=== PATIENT | female | born 1985 | race Caucasian/White ===

== ENCOUNTER 2018-06-18 18:05 | Emergency (ER) | payer SELFPAY ==
[2018-06-18 19:17] LABS: #Basophils 0.1 thou/uL (0.0-0.2); #Eosinphils 0.1 thou/uL (0.0-0.7); #Lymphocytes 3.3 thou/uL (1.20-3.40); #Monocytes 0.8 thou/uL (0.11-0.59); #Neutrophils 6.2 thou/uL (1.40-6.50); %Basophils 0.7 % (0.0-1.0); %Lymphocytes 31.6 % (21.0-51.0); %Monocytes 7.5 % (0.0-10.0); %Neutrophils 59.1 % (42.0-75.0); Hemoglobin 13.7 g/dL (12.0-16.0); Mean Corpuscular Hemoglobin 29.7 pg (27.0-31.0); Mean Corpuscular Volume 89.9 fL (78.0-98.0); Mean Platelet Volume 7.4 fL (7.4-10.4); Platelet Count 372 thou/uL (130-400); RBC Distribution Width 11.5 % (11.5-14.5); Red Blood Cell (RBC) Count 4.61 mill/uL (4.20-5.40); White Blood Cell (WBC) Count 10.5 thou/uL (4.8-10.8)
[2018-06-18 20:31] LABS: Bilirubin Negative (Negative); Blood, Urine Negative (Negative); Clarity CLEAR (Clear); Glucose, Urine (Dipstick) Negative (Negative); Leukocyte Negative (Negative); Nitrite Negative (Negative); Protein, Urine (Dipstick) Negative (Neg-Trace); pH, Urine 6.5 (5.0-9.0)
--- NOTE | 2018-06-18 21:26 | ULT ---
ULTRASOUND PELVIC ULTRASOUND TRANSVAGINAL DOPPLER DUPLEX: DATE: 06/18/2018 HISTORY: 32-year-old female with positive test. Confirm intrauterine . TECHNIQUE: Transabdominal transducer and endovaginal transducer used to visualize intrapelvic contents with martinez scale, color-flow, and spectral analysis. FINDINGS: Endometrial stripe is thickened to approximately 19 mm (1.9 cm), and has heterogeneous intermediate e chogenicity. Within it, tiny, irregularly-shaped pockets of anechoic fluid are visualized, but there is no evidence of a normal gestational sac. No pole is visualized. No free fluid in the cul-de-sac. Right ovary 3.5 x 2.5 x 2.5 cm. Left ovary 2.5 x 2.5 x 2 cm. No ovarian cyst. Blood flow demonstrated in both ovaries by Doppler. No ectopic gestation visualized, but negative ultrasound does not rule it out. IMPRESSION: 1. No evidence of a normal intrauterine gestation. 2. Abnormal appearance of endometrium. Possibilities include blood clots, retained products of concep tion and gestational trophoblastic disease. 3. Recommend serial follow-up syndrome beta-hCG levels, and if clinically indicated, follow-up pelvic and transvaginal ultrasound.
== END 2018-06-18 22:15 | disposition home or self-care (01) ==
LOC: ERS 18:05
DX: O20.0 Threatened abortion (principal); O99.341 Other mental disorders complicating pregnancy, first trimester; F41.9 Anxiety disorder, unspecified; F31.9 Bipolar disorder, unspecified; O99.331 Smoking (tobacco) complicating pregnancy, first trimester; F17.210 Nicotine dependence, cigarettes, uncomplicated; Z3A.01 Less than 8 weeks gestation of pregnancy
CPT/HCPCS: 36415; 76856; 81003; 84702; 85025; 86900; 86901; 90384; 96372

== ENCOUNTER 2019-06-11 12:47 | Emergency (ER) | payer SELFPAY | END 2019-06-11 13:30 | disposition home or self-care (01) | LOC: ERS 12:47 | DX: O9A.211 Injury, poisoning and certain other consequences of external causes complicating pregnancy, first trimester (principal); S16.1XXA Strain of muscle, fascia and tendon at neck level, initial encounter; S40.212A Abrasion of left shoulder, initial encounter; O99.341 Other mental disorders complicating pregnancy, first trimester; F31.9 Bipolar disorder, unspecified; F41.9 Anxiety disorder, unspecified; O99.331 Smoking (tobacco) complicating pregnancy, first trimester; F17.210 Nicotine dependence, cigarettes, uncomplicated; O99.411 Diseases of the circulatory system complicating pregnancy, first trimester; I50.9 Heart failure, unspecified; Z3A.11 11 weeks gestation of pregnancy; Z79.899 Other long term (current) drug therapy; V43.52XA Car driver injured in collision with other type car in traffic accident, initial encounter | CPT/HCPCS: 99283; L0120 ==

== ENCOUNTER 2019-07-26 11:08 | Emergency (ER) | payer OTHER | END 2019-07-26 11:40 | disposition home or self-care (01) | LOC: ERS 11:08 | DX: L55.0 Sunburn of first degree (principal); F31.9 Bipolar disorder, unspecified; F41.9 Anxiety disorder, unspecified; I50.9 Heart failure, unspecified; F17.210 Nicotine dependence, cigarettes, uncomplicated | CPT/HCPCS: 99281 ==

== ENCOUNTER 2020-03-15 11:11 | Emergency (ER) | payer OTHER ==
[2020-03-15] MEDS ORDERED: Ketorolac Tromethamine 30 MG/ML VIAL ONE (12:03)
== END 2020-03-15 12:34 | disposition home or self-care (01) ==
LOC: ERS 11:11
DX: M54.5 Low back pain (principal); F17.210 Nicotine dependence, cigarettes, uncomplicated
CPT/HCPCS: 96372; 99283; J1885

== ENCOUNTER 2023-07-11 09:15 | Emergency (ER) | payer BC ==
[2023-07-11] MEDS ORDERED: Ketorolac Tromethamine 30 MG (1 mL) VIAL ONE (11:13)
== END 2023-07-11 11:35 | disposition home or self-care (01) ==
LOC: ERS 09:15
DX: S16.1XXA Strain of muscle, fascia and tendon at neck level, initial encounter (principal); F17.290 Nicotine dependence, other tobacco product, uncomplicated; X50.0XXA Overexertion from strenuous movement or load, initial encounter
CPT/HCPCS: 96372; 99283; J1885